=== PATIENT | female | born 1985 | race African-American/Black ===

== ENCOUNTER 2017-03-13 06:06 | Inpatient (IN) | payer MEDICAID, OTHER ==
[~2017-03-13] VITALS: Ht 172.7 cm; Wt 95.7 kg
[2017-03-13] MEDS ORDERED: IV RINGERS,LACTATED 1000ML 1,000 ML IV SCH ×2 (06:35→13:18)
[2017-03-13] MEDS ORDERED: LIDOCAINE 1% PF 30 ML VIAL. INJ PRN (06:45)
[2017-03-13] MEDS ORDERED: ONDANSETRON PF 4 MG/2 ML VIAL. IV PRN ×2 (06:45→13:30)
[2017-03-13] MEDS ORDERED: TERBUTALINE 1 MG/ML VIAL. SQ PRN (06:45)
[2017-03-13] MEDS ORDERED: BUTORPHANOL 2 MG/ML VIAL. IV PRN (06:45)
[2017-03-13] MEDS ORDERED: ACETAMINOPHEN 325 MG TABLET. PO PRN ×2 (06:45→15:15)
[2017-03-13] MEDS ORDERED: OXYTOCIN 30 UNIT/500 ML PREMIX 500 ML IV PRN ×3 (06:45→15:15)
[2017-03-13] MEDS ORDERED: AMPICILLIN SODIUM 2 GM in IV NORMAL SALINE 100ML 100 ML IV ONE (07:00)
[2017-03-13] MEDS ORDERED: fentaNYL PF VIAL 100 MCG/2 ML VIAL IV PRN (07:15)
[2017-03-13 07:27] VITALS: BP 119/74
[2017-03-13 07:28] VITALS: BP 119/94
[2017-03-13 08:04] LABS: HEMATOCRIT 28.8 % (36.0-47.0); HEMOGLOBIN 9.5 g/dL (12.0-15.5); RED BLOOD COUNT 3.47 x10^6/uL (3.50-5.40); RED CELL DISTRIBUTION WIDTH 15.5 % (11.5-14.5); WHITE BLOOD COUNT 7.1 x10^3/uL (4.0-11.0)
[2017-03-13 08:07] LABS: BILIRUBIN,URINE NEGATIVE (NEG); GLUCOSE,URINE NEGATIVE (NEG); NITRITE,URINE NEGATIVE (NEG); PROTEIN,URINE NEGATIVE (NEG-TRACE); UROBILINOGEN,URINE 0.2 mg/dL (0.2 mg/dL)
[2017-03-13 08:15] LABS: SQUAMOUS EPITHELIAL CELL,UR MANY /LPF
[2017-03-13 08:16] LABS: BACTERIA,URINE MOD /HPF (0-FEW); RBC,URINE OCC /HPF (0-2); WBC,URINE OCC /HPF (0-4)
[2017-03-13] MEDS: AMPICILLIN SODIUM 1 GM in IV NORMAL SALINE 50ML 50 ML IV SCH ×2 (11:08→15:00)
[2017-03-13] MEDS ORDERED: fentaNYL PF VIAL 100 MCG/2 ML VIAL EPI PRN (13:30)
[2017-03-13] MEDS ORDERED: ePHEDrine PF IN SALINE 50 MG/5 ML DISP.SYRIN IV PRN (13:30)
[2017-03-13] MEDS ORDERED: L&D EPIDURAL CASSETTE 100 ML EP PRN (13:30)
[2017-03-13] MEDS ORDERED: NALOXONE 0.4 MG/ML VIAL. IV PRN (13:30)
[2017-03-13] MEDS ORDERED: ROPIVacaine 0.2% IN 0.9%NACL PF 40 MG/20 ML DISP.SYRIN. EPI PRN (13:30)
--- NOTE | 2017-03-13 15:12 | PDOC ---
VAGINAL DELIVERY DATE DATE: 03/13/17 TIME: 15:09 : 4 Para: 3 EDC: Mar 16, 2017 VACCUM ASSISTED: No PLACENTA: Spontaneous WEIGHT Weight [ ] Nuchal Cord: No Amniotic Fluid: Clear PAIN: Epidural EBL 300cc COMPLICATIONS None CONDITION Stable Signs of Intrauterine Infectio: None Shoulder Dystocia: No DIAGNOSIS TIUP del Problems: MELISSA LEMON MD Mar 13, 2017 15:12
[2017-03-13] MEDS ORDERED: BENZOCAINE 20% TOPICAL AEROSOL SPRAY 57GM CAN. TP PRN (15:15)
[2017-03-13] MEDS ORDERED: MAG HYDROX/ALUMINUM HYD/SIMETH 30 ML ORAL.SUSP PO PRN (15:15)
[2017-03-13] MEDS ORDERED: SIMETHICONE 80 MG TAB.CHEW PO PRN (15:15)
[2017-03-13] MEDS ORDERED: PHENYLEPH/MINERAL OIL/PETROLAT RECTAL OINTMENT 28GM TUBE. RC PRN (15:15)
[2017-03-13] MEDS ORDERED: MAGNESIUM HYDROXIDE 2,400 MG/30 ML ORAL.SUSP. PO PRN (15:15)
[2017-03-13] MEDS ORDERED: ZOLPIDEM 5 MG TABLET. PO PRN (15:15)
[2017-03-13] MEDS ORDERED: diphenhydrAMINE HCL 25 MG CAPSULE PO PRN (15:15)
[2017-03-13] MEDS ORDERED: 0.9 % SODIUM CHLORIDE 10 ML DISP.SYRIN. IV PRN (15:15)
[2017-03-13] MEDS ORDERED: HYDROcodone/APAP 5/325MG 1 TAB TABLET PO PRN (15:15)
[2017-03-13] MEDS ORDERED: HYDROCORTISONE 1% TOPICAL OINTMENT 30GM TUBE. TP PRN (15:15)
[2017-03-13] MEDS: 0.9 % SODIUM CHLORIDE 10 ML DISP.SYRIN. IV PRN (18:23)
[2017-03-13 20:30] VITALS: BP 98/53
[2017-03-13 22:27] VITALS: BP 97/51
[2017-03-13] MEDS: IBUPROFEN 600 MG TABLET. PO PRN (23:28)
[2017-03-14] VITALS (10 sets, daily range): BP systolic 100–116; BP diastolic 59–70
[2017-03-14 06:24] LABS: RPR REFLEX Non Reactive (Non Reactive)
[2017-03-14] MEDS ORDERED: IV RINGERS,LACTATED 1000ML 1,000 ML IV SCH (06:36)
[2017-03-14] MEDS ORDERED: MORPHINE SULFATE 2 MG/ML DISP.SYRIN. IV PRN (06:45)
[2017-03-14] MEDS ORDERED: fentaNYL PF VIAL 100 MCG/2 ML VIAL IV PRN (06:45)
[2017-03-14] MEDS ORDERED: LIDOCAINE 1% 1 ML SYRINGE. ID PRN (06:45)
[2017-03-14] MEDS ORDERED: ONDANSETRON PF 4 MG/2 ML VIAL. IV PRN (06:45)
[2017-03-14] MEDS ORDERED: PROCHLORPERAZINE 10 MG/2 ML VIAL. IV PRN (06:45)
[2017-03-14] MEDS: 0.9 % SODIUM CHLORIDE 10 ML DISP.SYRIN. IV PRN (07:30)
[2017-03-14] MEDS: FERROUS SULFATE 325 MG TABLET. PO SCH ×2 (08:00→18:03)
[2017-03-14] MEDS ORDERED: BUPIVAC MPF-EPI 0.5%-1:200000 30 ML VIAL. ONE (09:43)
[2017-03-14] MEDS ORDERED: SEVOFLURANE 16 TO 30 MINUTES. IH ONE (10:00)
[2017-03-14] MEDS ORDERED: ONDANSETRON PF 4 MG/2 ML VIAL. ONE (10:00)
[2017-03-14] MEDS ORDERED: DEXAMETHASONE SOD PHOS 20 MG/5 ML VIAL. ONE (10:00)
[2017-03-14] MEDS ORDERED: PROPOFOL 20 ML IV ONE (10:00)
[2017-03-14] MEDS ORDERED: LIDOCAINE 2% PF Vial for OR 5 ML VIAL. ONE (10:00)
[2017-03-14] MEDS ORDERED: fentaNYL PF VIAL 100 MCG/2 ML VIAL ONE ×3 (10:00→11:40)
[2017-03-14] MEDS ORDERED: MIDAZOLAM HCL/PF 2 MG/2 ML VIAL. ONE (10:02)
--- NOTE | 2017-03-14 11:15 | PDOC ---
BRIEF OPERATIVE NOTE Pre-Op Diagnosis Desires permanent sterilization Post-Op Diagnosis Same Procedure Performed PPBTL Surgeon Caitlin Anesthesia Type: General Blood Loss 5cc Specimens Obtained R and L ova ducts Complications NOne MELISSA LEMON MD Mar 14, 2017 11:15
[2017-03-14] MEDS: fentaNYL PF VIAL 100 MCG/2 ML VIAL IV PRN ×2 (11:22→11:38)
[2017-03-14] MEDS ORDERED: HYDROmorphone 2 MG/ML VIAL ONE (11:41)
[2017-03-14] MEDS: HYDROmorphone 2 MG/ML VIAL IV PRN ×2 (11:43→11:54)
[2017-03-14] MEDS: IBUPROFEN 600 MG TABLET. PO PRN ×2 (13:14→21:48)
--- NOTE | 2017-03-14 14:34 | OP ---
DATE OF SURGERY: 03/14/2017 PREOPERATIVE DIAGNOSIS: Multiparous, desires permanent sterilization. POSTOPERATIVE DIAGNOSIS: Multiparous, desires permanent sterilization. PROCEDURE: bilateral tubal ligation. SURGEON: Melissa Tucker MD STRAP MAKER: None. ANESTHESIA: General. ESTIMATED BLOOD LOSS: 5 mL. FLUIDS: Crystalloid. SPECIMENS: Right and left oviducts. COMPLICATIONS: None. CONDITION: Stable. DESCRIPTION OF PROCEDURE: Risks, benefits, indications, alternatives were discussed in detail with the patient. The patient was brought to the OR theater, placed in a supine position. After adequate general anesthesia, the patient was prepped and draped in usual sterile manner. A small infraumbilical incision was made sharply with a scalpel. Rectus fascia was grasped x 2 with Allis clamps, elevated way above the intraabdominal contents, incised sharply with the scalpel. Peritoneum was entered bluntly with gloved hand. [facility] retractor was placed within this space, first manipulate the incision over the right tube, right tube was grasped followed to its fimbriated end. A relatively avascular portion mesosalpinx was then identified in the mid ampullary region. Window was created with Bovie cautery, 2-0 chromic ties were used to doubly ligate the tube approximately 2 cm apart and the tube was transected between these two ligatures and handed off the operative field. The ends of the tube were burned. The tube was allowed to fall back in the abdominal cavity. Same procedure was carried out on the opposite side, good hemostasis was assured. Rectus fascia reapproximated with 0 Vicryl in a running manner. Skin was reapproximated with 4-0 Monocryl in subcuticular fashion. The incision was infiltrated with 0.5% Marcaine with epinephrine. Procedure was terminated. Sponge, needle and instrument counts were correct x 2 per nursing staff. The patient went to postop anesthesia recovery in stable condition. MELISSA TUCKER MD DR: ELVA/kaci JOB#: [id number] / [id number]
[2017-03-14] MEDS: HYDROcodone/APAP 5/325MG 1 TAB TABLET PO PRN ×2 (18:02→21:48)
[2017-03-15] MEDS: IBUPROFEN 600 MG TABLET. PO PRN (05:18)
[2017-03-15] MEDS: HYDROcodone/APAP 5/325MG 1 TAB TABLET PO PRN ×3 (05:19→17:21)
[2017-03-15 06:19] VITALS: BP 122/61
[2017-03-15] MEDS: FERROUS SULFATE 325 MG TABLET. PO SCH ×2 (08:38→17:21)
[2017-03-15 09:06] VITALS: BP 114/70
[2017-03-15 11:03] VITALS: BP 103/39
[2017-03-15] MEDS ORDERED: DIPHTH,PERTUSS(ACELL),TET TOX 0.5 ML DISP.SYRIN. VAX IM ONE (15:00)
[2017-03-15 16:00] VITALS: BP 134/65
--- NOTE | 2017-03-15 16:35 | PATHOLOGY ---
PATHOLOGY REPORT * * * * * * * * FINAL DIAGNOSIS: A. Right tubal ligation: - Segment of fallopian tube confirmed. B. Left tubal ligation: - Segment of fallopian tube confirmed. (JPM:carmelo; 03/15/2017) REPORT ELECTRONICALLY SIGNED BY: Rudy Hopper M.D. DATE/TIME: 03/15/2017 16:35 * * * * * * * * GROSS PATHOLOGY: A. Received in formalin labeled "Leticia Hernández, right portion fallopian tube," is a pink-ross segment of fallopian tube measuring 2.2 cm in length and 0.7 cm in diameter. The tissue is submitted entirely in cassette A1. B. Received in formalin labeled "left portion fallopian tube," is a pink-ross segment of fallopian tube measuring 2.7 cm in length and 0.7 cm in diameter. The tissue is submitted entirely in cassette B1. (JPM; 03/14/17) INITIAL CPT CODE(S): A; 27378 B; 97958 Professional services performed [place] [facility] [place] [address] Technical services performed by [facility] at [address] [place] [address], [facility] [address] [address]. SPECIMEN(S) RECEIVED: A.Right portion of fallopian tube B.Left portion of fallopian tube CLINICAL HISTORY: None Provided PATIENT: LETICIA HERNÁNDEZ /AGE: 1208/19/1985 (Age: 31) PATIENT #: [id number] ALT CASE #: SPECIMEN COLLECTION DATE: 03/14/2017 SPECIMEN RECEIVED DATE: 03/14/2017 [facility] - [address] [place] [address] - PHONE: [phone] * * * END OF REPORT * * *
[2017-03-15] MEDS ORDERED: OXYC-323 PO (19:14)
[2017-03-15] MEDS ORDERED: NAPR500T3 PO (19:14)
--- NOTE | 2017-03-15 19:59 | PDOC3 ---
OB DISCHARGE SUMMARY DATE OF ADMISSION: 03/13/17 DATE OF DISCHARGE: 03/15/17 REASON FOR ADMISSION: Induction of labor PROCEDURES: Ultrasound INTRAPARTUM PROCEDURES: Tubal Ligation, Spontanous Vag Deliv PROCEDURES: None OPERATIONS: None DISCHARGE DIAGNOSIS: Term Delivered DISCHARGE INFORMATION: Activity, Diet HOSPITAL COURSE Unremarkable CONDITION AT DISCHARGE Stable MELISSA LEMON MD Mar 15, 2017 19:59
[2017-03-15 20:00] VITALS: BP 131/77
--- NOTE | 2017-03-15 20:08 | PDOC1 ---
OB - History Hx of Present Care: Good Care Ultrasounds: Normal mid trimester US Obstetrical Complications: None Medical Complications: None Past Family/Social History * Past Medical, Surgical, Family and Obstetric Histories reviewed from chart. Blood Type: O+ Rubella: Immune RPR/VDRL: Negative GBS Status: Positive HBsAG: Negative OB - Chief Complaint & HPI Date of Admission: Date of Admission: Mar 13, 2017 at 06:06 Chief Complaint/History : 4 Para: 3 Reason for admission: induction of labor Indication for induction: other Admission Nurse Assessment Rev: Yes Problems: OB - Admission Exam Physical Exam Vitals: VS - Last 72 Hours, by Label Date Time Temp Pulse Resp B/P (MAP) Pulse Ox O2 Delivery O2 Flow Rate FiO2 03/15/17 18:21 18 Room Air 03/15/17 17:21 Room Air 03/15/17 16:00 98.2 74 18 134/65 (88) 98 Room Air 98.2 03/15/17 15:31 Room Air 03/15/17 11:03 97.5 63 18 103/39 (60) 97 Room Air 97.5 03/15/17 09:06 60 18 114/70 (85) 100 Room Air 03/15/17 06:19 98.7 54 18 122/61 (81) 98 Room Air 98.7 03/15/17 06:18 18 Room Air 03/15/17 05:19 18 Room Air 03/14/17 21:48 18 Room Air 03/14/17 21:15 97.5 67 18 112/59 (76) 97 Room Air 97.5 03/14/17 18:05 98.2 78 20 116/70 (85) 97 Room Air 98.2 03/14/17 18:02 Room Air 03/14/17 15:10 98.0 72 20 114/65 (81) 98 Room Air 98.0 03/14/17 14:00 69 18 102/60 (74) 03/14/17 13:30 63 106/69 (81) 03/14/17 13:14 Room Air 03/14/17 13:00 58 112/64 (80) 03/14/17 12:45 61 112/59 (76) 03/14/17 12:30 97.5 62 18 101/64 (76) 97 Room Air 97.5 03/14/17 12:20 97.5 64 16 111/69 (83) 96 Room Air 97.5 03/14/17 12:04 62 12 107/62 96 Room Air 03/14/17 11:49 79 12 108/62 99 Room Air 03/14/17 11:34 74 22 105/53 95 Room Air 03/14/17 11:19 Mask 8 03/14/17 10:04 98.4 75 12 114/70 100 Room Air 98.4 03/14/17 09:45 98.1 89 18 100/59 (73) 98 Room Air 98.1 03/13/17 22:27 97.9 67 16 97/51 (66) 97.9 03/13/17 20:30 98.2 74 18 98/53 (68) 98.2 03/13/17 14:27 18 03/13/17 07:28 98.6 84 18 119/94 (102) 98.6 03/13/17 07:27 98.6 84 20 119/74 (89) 98.6 HEENT: Normal, Nasal Mucosa Normal, Oropharynx Normal, Moist Membranes, Fontanelles Normal Heart: Regular Rate Lungs: Clear, Equal Abdomen: Gravid Extremities: Normal Pulses, No tenderness or swelling Reflexes: Normal Cervical Dilatation: 2cm Effacement: 25% Station: -2 Amniotic Fluid: Clear Heart Rate: Normal Accelerations: Accelerations Present Contractions on Admission: 6-10 Minutes Apart Intensity: Mild Assessment/Plan Assessment/Plan TIUP Induction ACSVD Problems: MELISSA LEMON MD Mar 15, 2017 20:08
== END 2017-03-15 20:10 | disposition home or self-care (01) | DRG 767 ==
LOC: 3 SO LND 06:06 → 3 NORTH 20:28
PROVIDERS: ADMIT Specialist; ATTEND Specialist
PROC: 0UB70ZZ Excision of Bilateral Fallopian Tubes, Open Approach (ICD-10-PCS; 2017-03-14)
PROC: 3E033VJ Introduction of Other Hormone into Peripheral Vein, Percutaneous Approach (ICD-10-PCS; 2017-03-14)
PROC: 3E0S3CZ (ICD-10-PCS; 2017-03-14)
PROC: 00HU33Z Insertion of Infusion Device into Spinal Canal, Percutaneous Approach (ICD-10-PCS; 2017-03-14)
PROC: 10E0XZZ Delivery of Products of Conception, External Approach (ICD-10-PCS; principal; 2017-03-14 11:00)
DX: O99.214 Obesity complicating childbirth (principal); Z37.0 Single live birth; Z3A.39 39 weeks gestation of pregnancy; Z30.2 Encounter for sterilization; Z68.35 Body mass index [BMI] 35.0-35.9, adult; O24.429 Gestational diabetes mellitus in childbirth, unspecified control; E66.01 Morbid (severe) obesity due to excess calories
CPT/HCPCS: 36415; 81001; 82947; 85014; 85027; 86593; 86850; 86900; 86901; 88302; 90715; C1769; C1887; J0290; J1100; J1170; J2001; J2250; J2405; J2590; J2704; J2795; J3010; J3490; J7120; Q0163

== ENCOUNTER 2021-08-21 18:11 | Emergency (ER) | payer OTHER ==
[~2021-08-21] VITALS: Ht 172.7 cm; Wt 79.5 kg
[~2021-08-21 18:11] MED LIST: NAPR-514 PO; OXYC1TAB15 PO
[2021-08-21 19:30] VITALS: BP 139/93
[2021-08-21] MEDS ORDERED: LIDOCAINE 1% Multi-Dose 20 ML VIAL. INJ ONE (20:00)
[2021-08-21] MEDS ORDERED: HYDROcodone/APAP 5/325MG 1 TAB TABLET PO ONE (20:00)
[2021-08-21] MEDS ORDERED: PIPERACILLIN/TAZOBACTAM 3.375 GM in IV NORMAL SALINE 50ML 50 ML IV ONE (20:00)
[2021-08-21] MEDS ORDERED: HYDR-2761 PO (20:00)
[2021-08-21] MEDS ORDERED: CEPH500T PO (20:00)
--- NOTE | 2021-08-21 20:02 | PHYS DOC ---
Past Medical History Past Surgical History: Hysterectomy, Tonsillectomy, Tubal ligation (LOUANN KIM APRN) Smoking Status: Never Smoker Alcohol Use: Occasionally (LOUANN KIM APRN) General Adult EDM: Chief Complaint: FINGER INJURY HPI: HPI: Patient is a 36 year old female patient presenting to the ED today with left thumb laceration. Patient states she was cut accidentally by a table so she was using. She is right-handed. She states her tetanus is up-to-date. (LOUANN KIM APRN) Review of Systems: Review of Systems: Constitutional: Denies fever or chills. [] Musculoskeletal: Denies back pain or joint pain. [] Integument: Reports left thumb laceration Neurologic: Denies headache, focal weakness or sensory changes. [] Psychiatric: Denies depression or anxiety. [] (LOUANN KIM APRN) Heart Score: C/O Chest Pain: N/A Risk Factors: Risk Factors: DM, Current or recent (<one month) smoker, HTN, HLP, family history of CAD, obesity. Risk Scores: Score 0 - 3: 2.5% MACE over next 6 weeks - Discharge Home Score 4 - 6: 20.3% MACE over next 6 weeks - Admit for Clinical Observation Score 7 - 10: 72.7% MACE over next 6 weeks - Early Invasive Strategies (LOUANN KIM APRN) Current Medications: Current Medications Medications (Trade) Dose Ordered Sig/Rossy Start Time Stop Time Status Last Admin Dose Admin Acetaminophen/ Hydrocodone Bitart (Lortab 5/325) 2 tab 1X ONCE 08/21/21 20:00 08/21/21 20:01 Lidocaine HCl (Lidocaine 1% 20ml Vial) 20 ml 1X ONCE 08/21/21 20:00 08/21/21 20:01 Piperacillin Sod/ Tazobactam Sod 3.375 gm/Sodium Chloride 50 ml @ 100 mls/hr 1X ONCE 08/21/21 20:00 08/21/21 20:29 (LOUANN KIM APRN) Allergies: Allergies: Allergies Coded Allergies Type Severity Reaction Last Updated Verified No Known Drug Allergies 03/13/17 No (LOUANN KIM APRN) Physical Exam: PE: Constitutional: Well developed, well nourished, no acute distress, non-toxic appearance. [] Skin: Left ventral thumb distal end with a laceration approximately 3 cm long. There is no obvious tendon involvement. Full range of motion to the left thumb. Adequate radial sensation to the left thumb. +2 left radial pulse. Cap refill less than 2 seconds to left thumb Back: No tenderness, no CVA tenderness. [] Extremities: See skin documentation Neurologic: Alert and oriented X 3, normal motor function, normal sensory function, no focal deficits noted. [] Psychologic: Affect normal, judgement normal, mood normal. [] (LOUANN KIM APRN) Current Patient Data: Vital Signs: Vital Signs Date Time Temp Pulse Resp B/P (MAP) Pulse Ox O2 Delivery O2 Flow Rate FiO2 08/21/21 19:30 98.2 73 16 139/93 (108) 98 Room Air 98.2 (LOUANN KIM APRN) EKG: EKG: [] (LOUANN KIM APRN) Radiology/Procedures: Radiology/Procedures: Laceration/Wound Repair Wound Location: Left thumb laceration Wound's Depth, Shape: Vertical Wound Length (cm): Proximately 3 cm Wound Explored: clean Irrigated w/ Saline (ccs):250 Betadine Prep?: [Y Anesthesia: 1% of lidocaine Volume Anesthetic (ccs): Approximately 6 cc Wound Repaired With: Prolene Suture Size/Type: 4.0/interrupted sutures Number of Sutures: 7 Progress : Wound was covered with nonstick dressing and splinted by me PROCEDURE: FINGER(S) LEFT EXAMINATION: Left hand/finger radiograph. VIEWS: One view of the hand to cone-down images of the first phalanx COMPARISON: None INDICATION:36 years, Female, finger laceration. FINDINGS: Displaced fracture involving the distal tuft of the first phalanx with associated soft tissue laceration/contusion. Joint spaces are preserved. No retained radiopaque foreign bodies. IMPRESSION: Displaced acute fracture involving the distal tuft of the first phalanx with associated soft tissue laceration. Electronically signed by: Brianna Paz DO (08/21/2021 8:14 PM) [facility] DICTATED and SIGNED BY: BRIANNA PAZ DO DATE: 08/21/[id number] 0 (LOUANN KIM BARGE ENGINEER) Course & Med Decision Making: Course & Med Decision Making Pertinent Labs and Imaging studies reviewed. (See chart for details) This is a 36-year-old female patient presenting to the ED today with left thumb laceration that occurred while using a table saw. Left thumb x-rays were noted for open tuft fracture Laceration was cleaned and closed by me as noted in procedures. Left thumb was splinted by me using form splint, neurovascular exam done by me post splinting is normal. Ice elevation encouraged. Provided orthopedic doctor to follow-up with, instructed to contact the office tomorrow morning. Patient was given Zosyn IV in the ED. She was discharged on cephalexin and hyd rocodone for pain. (LOUANN KIM APRN) Dragon Disclaimer: Dragon Disclaimer: This electronic medical record was generated, in whole or in part, using a voice recognition dictation system. (LOUANN KIM APRN) Departure Departure Impression: Primary Impression: Open fracture of tuft of distal phalanx of thumb Disposition: HOME / SELF CARE / HOMELESS Condition: STABLE Referrals: JAYY BRADLEY MD (PCP) GUNNER ROSS MD Call him tomorrow morning and set up a follow-up appointment Patient Instructions: Finger Fracture (Phalangeal)-SportsMed Additional Instructions: You have left thumb open fracture. Please contact the provided orthopedic doct or tomorrow morning and set up a follow-up appointment. Leave the dressing on until seen by the orthopedic doctor in 1-2 days. If you are not seen in the next 3 days, change the dressing. Wear the splint until seen by the orthopedic doctor. Return to the ED in 7 days for suture removal if not done by the orthopedic doctor Scripts Cephalexin (CEPHALEXIN) 500 Mg Tablet 1 TAB PO TID, #30 TAB Prov: LOUANN KIM APRN 08/21/21 Hydrocodone Bit/Acetaminophen (HYDROCODONE-APAP 5-325 ) 1 Tab Tablet 1 TAB PO PRN Q6HRS PRN for PAIN, #14 TAB 0 Refills Prov: LOUANN KIM APRN 08/21/21 Attending Signature Attending Signature I have reviewed the PA/DIRECTOR [employer]'s note and plan of care. I was available for consultation as needed during the patient's visit in the emergency department. I agree with the clinical impression, plan, and disposition. (MELISSA AYALA DO) LOUANN KIM APRN Aug 21, 2021 20:02 MELISSA AYALA DO Aug 22, 2021 00:29
--- NOTE | 2021-08-21 20:16 | RAD ---
EXAMINATION: Left hand/finger radiograph. VIEWS: One view of the hand to cone-down images of the first phalanx COMPARISON: None INDICATION:36 years, Female, finger laceration. FINDINGS: Displaced fracture involving the distal tuft of the first phalanx with associated soft tissue lacerat ion/contusion. Joint spaces are preserved. No retained radiopaque foreign bodies. IMPRESSION: Displaced acute fracture involving the distal tuft of the first phalanx with associated soft tissue l aceration. Electronically signed by: Juan Paz DO (08/21/2021 8:14 PM) [facility]
== END 2021-08-21 21:11 | disposition home or self-care (01) ==
LOC: ER 18:11
DX: S61.012A Laceration without foreign body of left thumb without damage to nail, initial encounter (principal); Y28.8XXA Contact with other sharp object, undetermined intent, initial encounter; Y93.89 Activity, other specified; Y92.89 Other specified places as the place of occurrence of the external cause; Y99.8 Other external cause status
CPT/HCPCS: 29125; 73140; 96365; 99284; J2543; J3490